=== PATIENT | female | born 1935 | race Caucasian/White ===

== ENCOUNTER 2020-04-23 09:13 | Day surgery (SDC) | payer MEDICARE ==
[2020-04-23] VITALS (7 sets, daily range): BP systolic 132–158; BP diastolic 52–123
[~2020-04-23] VITALS: Ht 147.3 cm; Wt 66.0 kg
[~2020-04-23 09:13] MED LIST: ASPI-1265 PO; ATOR20TA PO; BISA-155 PO; CITA40TA17 PO; DEXL60CA3 PO; METO50TA17 PO; OLOP30.5 BOTHNARES; QUIN40TA PO
[2020-04-23] MEDS ORDERED: normal saline 1000ml 1,000 ML IV ONE (09:40)
[2020-04-23] MEDS ORDERED: vancomycin/NS 1 GM ADD-VANTAGE 250 ML X 1 DOSE IV ONE (09:40)
[2020-04-23] MEDS ORDERED: cefazolin/dext.iso 2gm/100ml 100 ML IV ONE (09:45)
[2020-04-23] MEDS ORDERED: MULT-1085 PO (09:47)
[2020-04-23] MEDS ORDERED: CALC500T11 PO (09:47)
[2020-04-23] MEDS ORDERED: CITA20TA26 PO (09:47)
[2020-04-23] MEDS ORDERED: UBID10CA4 PO (09:47)
[2020-04-23] MEDS ORDERED: ESOM20CA PO (09:47)
[2020-04-23] MEDS ORDERED: ceFAZolin 2gm in dextrose, iso 50 ML IV ONE (09:50)
[2020-04-23 10:24] LABS: BASOPHILS % (AUTO) 0.7 % (0-1); EOSINOPHILS # (AUTO) 0.2 X10'3 (0-0.9); EOSINOPHILS % (AUTO) 2.6 % (0-6); HEMATOCRIT 32.3 % (35.0-45.0); HEMOGLOBIN 10.8 g/dl (12.0-16.0); LYMPHOCYTES # (AUTO) 1.6 X10'3 (1.1-4.8); LYMPHOCYTES % (AUTO) 24.8 % (21-51); MEAN CORPUSCULAR HEMOGLOBIN 33.8 PG (27.0-31.0); MEAN CORPUSCULAR HGB CONC 33.5 g/dL (33.0-36.5); MEAN CORPUSCULAR VOLUME 100.7 FL (78-98); MEAN PLATELET VOLUME 9.7 FL (7.4-10.4); MONOCYTES # (AUTO) 0.6 X10'3 (0-0.9); MONOCYTES % (AUTO) 8.7 % (2-12); NEUTROPHILS # (AUTO) 4.1 X10'3 (1.8-7.7); NEUTROPHILS % (AUTO) 63.2 % (42-75); PLATELET COUNT 207 X10'3 (140-440); RED BLOOD COUNT 3.21 X10'6 (4.20-5.60); RED CELL DISTRIBUTION WIDTH 12.5 % (11.5-14.5); WHITE BLOOD COUNT 6.4 X10'3 (4.5-11.0)
[2020-04-23 10:34] LABS: ALBUMIN 3.3 G/DL (3.4-5.0); ANION GAP 8 (8-16); BLOOD UREA NITROGEN 28 MG/DL (7-18); BUN/CREATININE RATIO 21.2 (6.6-38.0); CALCIUM 9.7 MG/DL (8.5-10.1); CHLORIDE 108 MMOL/L (99-107); CREATININE 1.32 MG/DL (0.40-0.90); GLUCOSE 93 MG/DL (70-104); MAGNESIUM 1.7 MG/DL (1.5-2.4); SODIUM 140 MMOL/L (135-145); eGFR 38 ML/MIN
[2020-04-23 10:56] LABS: PARTIAL THROMBOPLASTIN TIME 21 SECONDS (22-32)
[2020-04-23] MEDS ORDERED: fentaNYL/PF 50MCG/1 ML 2ML syringe ONE (12:16)
[2020-04-23] MEDS ORDERED: LIDOcaine 1% W/epiNEPHrine 1:100,000 20ml vial ONE (12:16)
[2020-04-23] MEDS ORDERED: ceFAZolin 1000mg inj ONE (12:16)
[2020-04-23] MEDS ORDERED: midazolam 2 mg/2 ml injection ONE ×2 (12:16→12:53)
== END 2020-04-23 16:00 | disposition home or self-care (01) ==
LOC: SSTAY O 09:13
PROVIDERS: ATTEND Internal Medicine Cardiovascular Disease
DX: I49.5 Sick sinus syndrome (principal); I47.1 Supraventricular tachycardia; I10 Essential (primary) hypertension; E78.5 Hyperlipidemia, unspecified; M06.9 Rheumatoid arthritis, unspecified; G47.30 Sleep apnea, unspecified; F32.9 Major depressive disorder, single episode, unspecified; D47.2 Monoclonal gammopathy; Z90.710 Acquired absence of both cervix and uterus; Z79.01 Long term (current) use of anticoagulants; Z88.0 Allergy status to penicillin; Z88.2 Allergy status to sulfonamides; Z98.890 Other specified postprocedural states; Z79.82 Long term (current) use of aspirin; Z79.899 Other long term (current) drug therapy; Z80.42 Family history of malignant neoplasm of prostate; Z83.3 Family history of diabetes mellitus; Z82.49 Family history of ischemic heart disease and other diseases of the circulatory system; Z80.3 Family history of malignant neoplasm of breast
CPT/HCPCS: 33208; 36415; 71045; 80048; 83735; 85025; 85610; 85730; 93005; 99152; 99153; C1785; C1894; C1898; J0690; J2250; J3010; A4620; A6258